=== PATIENT | female | born 1980 | race Two or more races ===

== ENCOUNTER 2019-03-23 21:53 | Emergency (ER) | payer OTHER ==
[2019-03-24] MEDS ORDERED: PROMETHAZINE HCL 25 MG TABLET PO ONE (03:09)
[2019-03-24] MEDS ORDERED: OXYCODONE-ACETAMINOPHEN 5-325 MG TABLET PO ONE (03:09)
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
[2019-03-24 04:44] VITALS: BP 121/70
== END 2019-03-24 04:50 | disposition home or self-care (01) ==
LOC: ER 21:53
DX: M54.2 Cervicalgia (principal); R07.81 Pleurodynia; V49.50XA Passenger injured in collision with unspecified motor vehicles in traffic accident, initial encounter
CPT/HCPCS: 72125; 99284